=== PATIENT | male | born 1970 | race Hispanic/Latino ===

== ENCOUNTER 2018-12-13 19:58 | Inpatient (IN) | payer SELFPAY ==
[2018-12-13] MEDS ORDERED: LOPRESSOR IV ONE (20:09)
[2018-12-13 20:21] LABS: Basophils # (Auto) 0.1 K/mm3 (0.0-0.1); Basophils % (Auto) 0.9 % (0.0-1.8); Eosinophils # (Auto) 0.2 K/mm3 (0.0-0.4); Eosinophils % (Auto) 1.5 % (0.0-4.3); Hematocrit 44.1 % (35.5-45.6); Hemoglobin 14.9 gm/dl (11.8-15.2); Lymphocytes # (Auto) 4.3 K/mm3 (1.2-5.4); Lymphocytes % (Auto) 29.9 % (13.4-35.0); Mean Corpuscular HGB Conc 34 % (32-34); Mean Corpuscular Volume 91 fl (84-94); Monocytes # (Auto) 1.2 K/mm3 (0.0-0.8); Monocytes % (Auto) 8.2 % (0.0-7.3); Platelet Count 289 K/mm3 (140-440); Red Blood Count 4.85 M/mm3 (3.65-5.03); Red Cell Distribution Width 13.2 % (13.2-15.2)
--- NOTE | 2018-12-13 20:25 | Emergency Department Report ---
ED Chest Pain HPI - General Chief Complaint: Chest Pain Stated Complaint: STEMI Time Seen by Provider: 12/13/18 20:08 Source: patient, EMS Mode of arrival: Stretcher Limitations: No Limitations - History of Present Illness Initial Comments: Patient is 48 years old male with history of coronary artery disease status post stent in 2010 and hypertension. Patient is noncompliant with his medication, he stated that he does not remember the last time he took medication. Patient stated that he was morning his glass when he started having chest pain. He she'll call came from EMS as well as inferior STEMI. EKG sent to Dr. Burgos who stated that there is no STEMI. Patient to stand significantly improved with nitroglycerin. Patient blood pressure is 185/115 upon arrival to the ER. Patient given Lopressor 5 mg IV. MD Complaint: chest pain -: This afternoon Onset: during exertion Pain Location: left chest Pain Radiation: none Severity: moderate Severity scale (0 -10): 7 Quality: heaviness, pressure Consistency: constant Improves With: nitroglycerin - Related Data Home Medications Medication Instructions Recorded Confirmed Last Taken Aspirin EC 325 mg PO QDAY 12/13/18 12/13/18 Unknown Lisinopril [Zestril] 20 mg PO QDAY 12/13/18 12/13/18 Unknown Metoprolol [Lopressor] 25 mg PO BID 12/13/18 12/13/18 Unknown Nitroglycerin [Nitrostat] 0.4 mg SL Q5M PRN 12/13/18 12/13/18 Unknown Allergies Allergy/AdvReac Type Severity Reaction Status Date / Time No Known Allergies Allergy Unverified 12/13/18 20:04 Heart Score - HEART Score History: Moderately suspicious EKG: Non-specific Age: 45-65 Risk factors: > 3 risk factors or hx of atherosclerotic disease Troponin: < normal limit HEART Score: 5 - Critical Actions Critical Actions: 4-6 pts:12-16.6% risk of adverse cardiac event. Should be admitted ED Review of Systems ROS: Stated complaint: STEMI Other details as noted in HPI Comment: All other systems reviewed and negative Constitutional: denies: chills, fever Respiratory: denies: cough, shortness of breath, SOB with exertion Cardiovascular: chest pain. denies: palpitations Gastrointestinal: denies: abdominal pain, nausea, vomiting Musculoskeletal: denies: back pain Neurological: denies: headache, weakness ED Past Medical Hx - Past Medical History Previous Medical History?: Yes Hx Hypertension: Yes Hx Heart Attack/AMI: Yes - Medications Home Medications: Home Medications Medication Instructions Recorded Confirmed Last Taken Type Aspirin EC 325 mg PO QDAY 12/13/18 12/13/18 Unknown History Lisinopril [Zestril] 20 mg PO QDAY 12/13/18 12/13/18 Unknown History Metoprolol [Lopressor] 25 mg PO BID 12/13/18 12/13/18 Unknown History Nitroglycerin [Nitrostat] 0.4 mg SL Q5M PRN 12/13/18 12/13/18 Unknown History ED Physical Exam - General Limitations: No Limitations General appearance: alert, in no apparent distress - Head Head exam: Present: atraumatic, normocephalic, normal inspection - Eye Eye exam: Present: normal appearance - ENT ENT exam: Present: normal exam, normal orophraynx, mucous membranes moist - Neck Neck exam: Present: normal inspection, full ROM. Absent: tenderness, meningismus, lymphadenopathy, thyromegaly - Respiratory Respiratory exam: Present: normal lung sounds bilaterally - Cardiovascular Cardiovascular Exam: Present: tachycardia. Absent: systolic murmur, diastolic murmur, rubs, gallop - GI/Abdominal GI/Abdominal exam: Present: soft, normal bowel sounds. Absent: distended, tenderness, guarding, rebound, rigid - Extremities Exam Extremities exam: Present: normal inspection, full ROM, normal capillary refill - Back Exam Back exam: Present: normal inspection, full ROM. Absent: CVA tenderness (R), CVA tenderness (L) - Neurological Exam Neurological exam: Present: alert, oriented X3, CN II-XII intact, normal gait, reflexes normal - Psychiatric Psychiatric exam: Present: normal mood - Skin Skin exam: Present: warm, intact, normal color ED Course Vital Signs 12/13/18 12/13/18 12/13/18 20:08 20:15 20:47 Temperature 99.3 F Pulse Rate 104 H 104 H 76 Respiratory 20 20 Rate Blood Pressure 185/114 185/114 Blood Pressure 148/93 [Right] O2 Sat by Pulse 96 97 Oximetry ED Medical Decision Making - Lab Data Result diagrams: 12/13/18 20:15 12/13/18 20:15 - EKG Data -: EKG Interpreted by Me EKG shows normal: sinus rhythm Rate: tachycardia - EKG Data Interpretation: nonspecific ST-T wave taty - Radiology Data Radiology results: report reviewed Chest x-ray is unremarkable. - Medical Decision Making Patient is 48 years old male with history of coronary artery disease status post stent in 2010 and hypertension. Patient is noncompliant with his medication, he stated that he does not remember the last time he took medication. Patient stated that he was morning his glass when he started having chest pain. He she'll call came from EMS as well as inferior STEMI. EKG sent to Dr. Burgos who stated that there is no STEMI. Patient to stand significantly improved with nitroglycerin. Patient blood pressure is 185/115 upon arrival to the ER. Patient given Lopressor 5 mg IV. Patient troponin came back at 1.7. Patient discussed with Dr. Burgos, who advised to keep patient nothing by mouth after midnight and start patient now on heparin drip and he will do cardiac catheterization in the morning. I discussed the patient is Dr. Castro, she agreed to admit the patient to medical service. Critical Care Time: Yes Critical care time in (mins) excluding proc time.: 45 Critical care attestation.: If time is entered above; I have spent that time in minutes in the direct care of this critically ill patient, excluding procedure time. ED Disposition Clinical Impression: Non-STEMI (non-ST elevated myocardial infarction), Chest pain Disposition: 09 OP ADMIT IP TO THIS HOSP Is pt being admited?: Yes Condition: Stable Instructions: Chest Pain (ED)
[2018-12-13 20:31] LABS: INR 1.2 (0.87-1.13)
[2018-12-13 20:43] LABS: Calcium 9.4 mg/dL (8.4-10.2)
[2018-12-13] MEDS ORDERED: HEPARIN 10,000 UNITS/10 ML IV ONE ×2 (21:00→21:02)
--- NOTE | 2018-12-13 21:01 | XRay Report ---
CHEST 1 VIEW INDICATION: Chest Pain. COMPARISON: none FINDINGS: SUPPORT DEVICES: None. HEART / MEDIASTINUM: No significant abnormality. LUNGS / PLEURA: No significant pulmonary or pleural abnormality. No pneumothorax. ADDITIONAL FINDINGS: IMPRESSION: 1. No acute findings. Signer Name: Bola Venegas MD Signed: 12/13/2018 8:56 PM Workstation Name: [id number]
[2018-12-13 21:06] LABS: Chol/HDL Ratio 8.16 %
[2018-12-13] MEDS ORDERED: HEPARIN/ 0.45% NACL-25,000 UNIT/500 ML 25,000 UNIT/500 ML BAG ONE (21:09)
[2018-12-13] MEDS ORDERED: HEPARIN/ 0.45% NACL-25,000 UNIT/500 ML 25,000 UNIT/500 ML BAG IV SCH (22:00)
[2018-12-13] MEDS ORDERED: SODIUM CHLORIDE FLUSH SYRINGE 10 ML IV PRN (22:44)
[2018-12-13] MEDS ORDERED: MORPHINE IV PRN (22:44)
[2018-12-13] MEDS ORDERED: AMBIEN PO PRN (22:44)
[2018-12-13] MEDS ORDERED: TYLENOL PO PRN (22:44)
[2018-12-13] MEDS ORDERED: ZOFRAN IV PRN (22:44)
--- NOTE | 2018-12-13 22:49 | History and Physical Report ---
History of Present Illness Date of examination: 12/13/18 Chief complaint: Chest pain History of present illness: Patient is a 48 year old male with history of CAD status post cardiac stent placement who presented to the ED on account of the 5 days history of mid sternal chest pain. He described it as pressure-like in character, rated 9/10 and radiating to the jaw and left arm. The pain waxes and wanes. Patient was slightly relieved with aspirin but no known aggravating factors. He has associated diaphoresis, palpitation, dry cough, headaches, nausea with vomiting 2 episodes and lightheadedness. He denies leg swelling, orthopnea, PND, fever, chills, syncope or loss of consciousness. Patient's last stress test was in 2014 which was normal. He stated that he has not seen a doctor for the past 1 year because his previous primary care physician left the practice. Also, he has been off his medications for the past 1 year because he did not have refills on his medications. Past History Past Medical History: CAD, hypertension Past Surgical History: Other (cardiac stent placement ) Social history: other (he has remote history of cigarette smoking, he quit 22 years ago. He has been smoking marijuana daily for 35 years. He admits to rare alcohol use. He denies other illicit drug use) Family history: other (parents had history of diabetes. Mother had heart attack in her 50s) Medications and Allergies Allergies Allergy/AdvReac Type Severity Reaction Status Date / Time No Known Allergies Allergy Unverified 12/13/18 20:04 Home Medications Medication Instructions Recorded Confirmed Last Taken Type Aspirin EC 325 mg PO QDAY 12/13/18 12/13/18 Unknown History Lisinopril [Zestril] 20 mg PO QDAY 12/13/18 12/13/18 Unknown History Metoprolol [Lopressor] 25 mg PO BID 12/13/18 12/13/18 Unknown History Nitroglycerin [Nitrostat] 0.4 mg SL Q5M PRN 12/13/18 12/13/18 Unknown History Active Meds: Active Medications Acetaminophen (Tylenol) 650 mg PO Q4H PRN PRN Reason: Pain MILD(1-3)/Fever >100.5/LUCERO Docusate Sodium (Colace) 100 mg PO BID CHEL Famotidine (Pepcid) 20 mg PO BID CHEL Heparin Sodium/Sodium Chloride (Heparin/ 0.45% Nacl-25,000 Unit/500 Ml) 25,000 unit in 500 mls @ 20 mls/hr IV TITRATE CHEL; Protocol Last Admin: 12/13/18 21:41 Dose: 1,000 units/hr, 20 mls/hr Documented by: Morphine Sulfate (Morphine) 2 mg IV Q4H PRN PRN Reason: Pain, Moderate (4-6) Ondansetron HCl (Zofran) 4 mg IV Q8H PRN PRN Reason: Nausea And Vomiting Sodium Chloride (Sodium Chloride Flush Syringe 10 Ml) 10 ml IV BID CHEL Sodium Chloride (Sodium Chloride Flush Syringe 10 Ml) 10 ml IV PRN PRN PRN Reason: LINE FLUSH Zolpidem Tartrate (Ambien) 5 mg PO QHS PRN PRN Reason: Insomnia Review of Systems All systems: negative (except as documented in the HPI, 14 point system reviewed were negative) Exam - Constitutional Vitals: Temp Pulse Resp BP Pulse Ox 99.3 F 76 20 148/93 99 12/13/18 20:08 12/13/18 20:47 12/13/18 21:00 12/13/18 20:47 12/13/18 21:00 General appearance: Present: no acute distress, well-nourished - EENT Eyes: Present: PERRL, EOM intact ENT: hearing intact, clear oral mucosa - Neck Neck: Present: supple, normal ROM - Respiratory Respiratory effort: normal Respiratory: bilateral: CTA - Cardiovascular Rhythm: regular Heart Sounds: Present: S1 & S2 - Extremities Extremities: pulses symmetrical, No edema Peripheral Pulses: within normal limits - Abdominal General gastrointestinal: Present: soft, non-tender, non-distended, normal bowel sounds Male genitourinary: Present: deferred - Integumentary Integumentary: Present: clear, warm, dry - Musculoskeletal Musculoskeletal: gait normal, strength equal bilaterally - Psychiatric Psychiatric: appropriate mood/affect, intact judgment & insight - Neurologic Neurologic: CNII-XII intact, moves all extremities Results - Labs CBC & Chem 7: 12/13/18 22:28 12/13/18 20:15 Labs: Laboratory Last Values WBC 14.3 K/mm3 (4.5-11.0) H 12/13/18 20:15 RBC 4.85 M/mm3 (3.65-5.03) 12/13/18 20:15 Hgb 14.9 gm/dl (11.8-15.2) 12/13/18 20:15 Hct 44.1 % (35.5-45.6) 12/13/18 20:15 MCV 91 fl (84-94) 12/13/18 20:15 MCH 31 pg (28-32) 12/13/18 20:15 MCHC 34 % (32-34) 12/13/18 20:15 RDW 13.2 % (13.2-15.2) 12/13/18 20:15 Plt Count 289 K/mm3 (140-440) 12/13/18 20:15 Lymph % (Auto) 29.9 % (13.4-35.0) 12/13/18 20:15 [place] % (Auto) 8.2 % (0.0-7.3) H 12/13/18 20:15 Eos % (Auto) 1.5 % (0.0-4.3) 12/13/18 20:15 Baso % (Auto) 0.9 % (0.0-1.8) 12/13/18 20:15 Lymph # 4.3 K/mm3 (1.2-5.4) 12/13/18 20:15 [place] # 1.2 K/mm3 (0.0-0.8) H 12/13/18 20:15 Eos # 0.2 K/mm3 (0.0-0.4) 12/13/18 20:15 Baso # 0.1 K/mm3 (0.0-0.1) 12/13/18 20:15 Seg Neutrophils % 59.5 % (40.0-70.0) 12/13/18 20:15 Seg Neutrophils # 8.5 K/mm3 (1.8-7.7) H 12/13/18 20:15 PT 14.9 Sec. (12.2-14.9) 12/13/18 20:15 INR 1.20 (0.87-1.13) H 12/13/18 20:15 APTT 32.0 Sec. (24.2-36.6) 12/13/18 20:15 159.89 ng/mlDDU (0-234) 12/13/18 20:15 Sodium 134 mmol/L (137-145) L 12/13/18 20:15 Potassium 4.2 mmol/L (3.6-5.0) 12/13/18 20:15 Chloride 94.5 mmol/L (98-107) L 12/13/18 20:15 Carbon Dioxide 28 mmol/L (22-30) 12/13/18 20:15 16 mmol/L 12/13/18 20:15 BUN 15 mg/dL (9-20) 12/13/18 20:15 1.3 mg/dL (0.8-1.5) 12/13/18 20:15 Estimated GFR 59 ml/min 12/13/18 20:15 12 % 12/13/18 20:15 Glucose 205 mg/dL (75-100) H 12/13/18 20:15 Calcium 9.4 mg/dL (8.4-10.2) 12/13/18 20:15 1.170 ng/mL (0.00-0.029) H* 12/13/18 20:15 Triglycerides 186 mg/dL (2-149) H 12/13/18 20:15 Cholesterol 204 mg/dL (50-199) H 12/13/18 20:15 157 mg/dL (50-130) H 12/13/18 20:15 25 mg/dL (40-59) L 12/13/18 20:15 8.16 % 12/13/18 20:15 29 units/L (13-60) 12/13/18 20:15 Assessment and Plan Assessment and plan: NSTEMI -On ACS protocol with heparin drip -Echocardiogram pending -Cardiology consulted in the ED: Recommended placing patient on nothing by mouth for possible left cardiac catheterization in a.m. Hypertensive crisis -On antihypertensives -Monitor BP and adjust meds as needed Dyslipidemia -On statin Hyperglycemia -We will check hemoglobin A1c level Leukocytosis -Probably reactive, will monitor level -Urinalysis and chest x-ray negative Marijuana abuse -Patient counseled on cessation Medication noncompliance -Patient counseled Time spent: 40 minutes
[2018-12-13] MEDS ORDERED: D50W (25GM) Syringe IV PRN (22:50)
[2018-12-13] MEDS ORDERED: NITROSTAT SL PRN (22:51)
[2018-12-13 22:59] LABS: Hematocrit 42.9 % (35.5-45.6); Hemoglobin 14.4 gm/dl (11.8-15.2)
[2018-12-13 23:01] LABS: Bilirubin,Urine NEG (Negative); Blood,Urine SM (Negative); Color,Urine Straw (Yellow); Protein,Urine <15 mg/dL mg/dL (Negative); Urobilinogen,Urine < 2.0 mg/dL (<2.0); WBC,Urine < 1.0 /HPF (0.0-6.0)
[2018-12-13 23:10] LABS: INR 1.28 (0.87-1.13)
[2018-12-13 23:15] LABS: Partial Thromboplastin Time 118.2 Sec. (24.2-36.6)
[2018-12-13 23:22] LABS: Amphetamine Screen,Urine PRESUMPTIVE NEGATIVE; Benzodiazepines Screen,Urine PRESUMPTIVE NEGATIVE; Cocaine Screen,Urine PRESUMPTIVE NEGATIVE; Methadone Screen,Urine PRESUMPTIVE NEGATIVE; Opiate Screen,Urine PRESUMPTIVE NEGATIVE
[2018-12-13 23:35] LABS: Cannabinoid Screen,Urine PRESUMPTIVE POSITIVE
[2018-12-13] MEDS ORDERED: COREG ONE (23:42)
[2018-12-13] MEDS: COREG PO SCH (23:43)
[2018-12-13] MEDS ORDERED: NACL 0.9% 1000 ML 1,000 ML IV SCH (23:45)
[2018-12-14 05:04] LABS: Alanine Aminotransferase 31 units/L (7-56); Albumin 3.5 g/dL (3.9-5)
[2018-12-14 05:06] LABS: Bilirubin,Direct < 0.2 mg/dL (0-0.2)
[2018-12-14] MEDS ORDERED: HEPARIN 10,000 UNITS/10 ML IV ONE (06:30)
[2018-12-14] MEDS ORDERED: NACL 0.9% 500 ML 500 ML ONE ×2 (07:33→09:17)
[2018-12-14] MEDS ORDERED: ECOTRIN PO ONE ×2 (07:48→08:00)
[2018-12-14] MEDS ORDERED: NACL 0.9% 500 ML 500 ML IV SCH (08:00)
[2018-12-14] MEDS ORDERED: HEPARIN/NS 5000 UNIT/500ML(CATH LAB) 1,000 ML IR ONE (08:18)
[2018-12-14] MEDS ORDERED: XYLOCAINE 2% INFILTRATI ONE (08:18)
[2018-12-14] MEDS ORDERED: HEPARIN 10,000 UNITS/10 ML ONE (08:18)
[2018-12-14] MEDS ORDERED: CALAN ONE (08:18)
[2018-12-14] MEDS ORDERED: NITROGLYCERIN SYRINGE 3 ML ONE (08:18)
[2018-12-14] MEDS ORDERED: SUBLIMAZE ONE (08:19)
[2018-12-14] MEDS ORDERED: VERSED ONE (08:19)
--- NOTE | 2018-12-14 09:13 | Cardiac Catherization Report ---
REFERRING PHYSICIAN: Hospitalist service. INDICATION FOR PROCEDURE: The patient is a pleasant 48-year-old gentleman who presents here with chest pain, fatigue, history of prior PCI, has not seen a doctor for some time, found to have a non-ST elevation myocardial infarction, referred for urgent left heart catheterization. Risks, benefits, alternatives explained at length prior to obtaining informed consent. PROCEDURE IN DETAIL: The patient was brought to the catheterization lab in a postabsorptive state, prepped and draped in sterile fashion. Jesús's test in right hand was normal. A 2 mL of 2% lidocaine used to anesthetize the right wrist. A standard 6-[place] hydrophilic sheath used to cannulate the right radial via modified Seldinger technique. All exchanges performed to exchange a J-tip guidewire. JL3.5 catheter used to engage the left main. No dampening or ventricularization. Cineangiography performed in all projections. JR4 catheter was used to cross the aortic valve under fluoroscopic guidance. Left ventriculography performed in 30 VAZQUEZ and 30 CHERYLE projections via hand injections, catheter flushed. Manual pullback performed with continuous pressure monitoring. Catheter used to engage the right coronary. No dampening or ventricularization. Cineangiography performed in all projections. Catheter removed from the body of wire, sheath removed. Manual pressure used to achieve hemostasis. DATA: Aortic pressure is 140/80, LV pressure is 140. LVP of 35 mmHg. Left ventriculography revealed severe global left ventricle hypokinesis. Estimated ejection fraction of 20-25%. No evidence of aortic stenosis. CORONARY ANATOMY: Right dominant system. Right coronary has a chronic total occlusion proximally extensive left to right collaterals. Left main with an eccentric calcified 70% distal stenosis. A 99% ostial/proximal long complex circumflex stenosis, 75% ostial LAD stenosis. LAD is chronic diffuse disease throughout including mid 99%. Second diagonal with a 99% stenosis. CONCLUSIONS: 1. Severe and diffuse triple vessel disease as aforementioned in this right dominant system. 2. Severe global left ventricular hypokinesis, estimated ejection fraction of 20-25%. 3. Moderately elevated LVEDP. 4. No evidence of aortic stenosis. PLAN: At this point, the patient would recommend a complete revascularization with coronary bypass surgery. The patient is clinically stable. No chest pain. Orthopnea on room air is very comfortable. We will give IV Lasix, transferred to [facility] for bypass surgery. He is in stable condition. The results of procedure were explained at length to the patient. All questions and concerns were addressed. I directly supervised the administration of moderate sedation with fentanyl and Versed from 8:40-9:00 a.m. JOB# [id number] SBM/NTS
[2018-12-14] MEDS ORDERED: ZESTRIL PO SCH (10:00)
[2018-12-14] MEDS ORDERED: PEPCID PO SCH (10:00)
[2018-12-14] MEDS ORDERED: SODIUM CHLORIDE FLUSH SYRINGE 10 ML IV SCH (10:00)
[2018-12-14] MEDS ORDERED: COLACE PO SCH (10:00)
--- NOTE | 2018-12-14 10:06 | Consultation ---
CARDIOLOGY CONSULTATION REASON FOR CONSULTATION: Advice and opinion regarding chest pain. HISTORY OF PRESENT ILLNESS: The patient is a pleasant 48-year-old gentleman with history of coronary artery disease, history of PCI years ago, hypertension, past tobacco abuse, marijuana use, presents here for chest pain rated 9-10 radiating to left arm and jaw, waxes and waning, been going on for weeks. Does have palpitations, occasional headache, nausea, vomiting. He does have occasional orthopnea, no PND. Last stress test was in 2014, has not seen a doctor in years, not taken any of his medications, now feeling much better after blood pressure improved and nitroglycerin given. PAST MEDICAL HISTORY: Coronary artery disease, hypertension. PAST SURGICAL HISTORY: PCI. SOCIAL HISTORY: As aforementioned. FAMILY HISTORY: Mother with premature heart disease. Both parents had diabetes. ALLERGIES: No known drug, food, or environmental allergies. MEDICATIONS: Inpatient and outpatient medications reviewed. REVIEW OF SYSTEMS: As per HPI. PHYSICAL EXAMINATION: VITAL SIGNS: His blood pressure is in the 130s/90s range. He is in sinus rhythm. O2 sats have been 98% on room air, respirations 16. GENERAL: This is a young gentleman, in no apparent distress, oriented x 3. HEENT: Sclerae are anicteric. PERRLA. NECK: Supple. No mass. No JVD. CHEST: Clear to auscultation, good air movement. CARDIOVASCULAR: Irregular rhythm, S1, S2. ABDOMEN: Soft, nontender, nondistended. Normoactive bowel sounds in 4 quadrants. No mass or bruits. EXTREMITIES: No cyanosis, clubbing, edema. Good peripheral pulses. SKIN: Intact. No rashes. LABORATORY DATA: ECG reveals sinus tachycardia, nonspecific ST-T wave changes, LVH. Labs, first troponin is 1.2, hemoglobin is 14.4, hematocrit is 42.9, platelets 296. Creatinine is normal. Sodium 134. Positive for marijuana. ASSESSMENT AND PLAN: The patient is a pleasant 48-year-old gentleman who presents with non-ST elevation myocardial infarction, in milieu of medical noncompliance, marijuana use and known coronary artery disease. IV heparin, aspirin, statin, nitro, beta blockade, left heart catheterization in a.m. My findings and plan of care discussed at length with the patient, all questions and concerns were addressed. Further plans contingent on cath results. [facility]# [id number] MAYDA/GILES
[2018-12-14] MEDS: HumaLOG SUB-Q SCH ×2 (10:53→11:50)
[2018-12-14] MEDS: COREG PO SCH (11:54)
[2018-12-14 13:40] VITALS: BP 92/54
--- NOTE | 2018-12-14 15:44 | Progress Note ---
Subjective Date of service: 12/14/18 Interval history: A/P Sepsis. Etiology secondary to pneumonia and UTI. Blood culture 12/06/2018 no growth. urine culture no growth. Infectious disease following and reports that the infection is incurable. Consider hospice care. Healthcare associated pneumonia. CXR with persistent right infiltrate. Tracheal asp poor specimen Acute hypoxic respiratory failure. Etiology secondary to above. Patient was recently intubated now extubated. Continue O2 to maintain sats Complicated UTI with large rectovesical fistula, stones and bilateral [employer] tubes. This infection is incurable. Urine culture from right TONG[employer] tube 11/02/2018 Pseudomonas and VRE. s/p nephrostogram and nephrostomy tube exchange of bilateral nephrostomy tubes 11/12/[address] Aguayo. Periumbilical intraabdominal collection which was drained History of pulmonary embolism. Severe protein calorie malnutrition. Nutritional support. Objective - Constitutional Vitals: Vital Signs - 12hr 12/14/18 12/14/18 12/14/18 09:05 09:20 09:35 Temperature 97.9 F Pulse Rate 79 78 77 Respiratory 16 14 10 L Rate Blood Pressure 150/112 145/108 137/101 O2 Sat by Pulse 94 94 95 Oximetry 12/14/18 12/14/18 12/14/18 09:50 10:30 11:00 Temperature Pulse Rate 73 71 80 Respiratory 12 15 30 H Rate Blood Pressure 149/105 143/103 152/114 O2 Sat by Pulse 95 96 97 Oximetry 12/14/18 12/14/18 12/14/18 11:15 11:30 11:45 Temperature Pulse Rate 72 78 80 Respiratory 18 15 13 Rate Blood Pressure 138/100 143/98 153/96 O2 Sat by Pulse 96 96 96 Oximetry 12/14/18 12/14/18 12/14/18 11:54 12:00 12:30 Temperature Pulse Rate 80 80 78 Respiratory 15 20 Rate Blood Pressure 138/100 155/102 139/94 O2 Sat by Pulse 95 96 Oximetry 12/14/18 12/14/18 13:00 13:30 Temperature Pulse Rate 82 77 Respiratory 13 14 Rate Blood Pressure 134/94 92/54 O2 Sat by Pulse 97 98 Oximetry - Labs CBC & Chem 7: 12/13/18 22:28 12/13/18 20:15 Labs: Abnormal lab results 12/13/18 12/13/18 12/13/18 Range/Units 20:15 20:15 20:15 WBC 14.3 H (4.5-11.0) K/mm3 [place] % (Auto) 8.2 H (0.0-7.3) % [place] # 1.2 H (0.0-0.8) K/mm3 Seg Neutrophils # 8.5 H (1.8-7.7) K/mm3 PT (12.2-14.9) Sec. INR 1.20 H (0.87-1.13) APTT (24.2-36.6) Sec. Heparin Anti-Xa Level (0.3-0.7) U.I./ml Sodium 134 L (137-145) mmol/L Chloride 94.5 L (98-107) mmol/L Glucose 205 H (75-100) mg/dL POC Glucose (70-105) AST (5-40) units/L Troponin T 1.170 H* (0.00-0.029) ng/mL Albumin (3.9-5) g/dL Triglycerides 186 H (2-149) mg/dL Cholesterol 204 H (50-199) mg/dL LDL Cholesterol Direct 157 H (50-130) mg/dL HDL Cholesterol 25 L (40-59) mg/dL 12/13/18 12/13/18 12/14/18 Range/Units 22:28 22:28 04:14 WBC (4.5-11.0) K/mm3 [place] % (Auto) (0.0-7.3) % [place] # (0.0-0.8) K/mm3 Seg Neutrophils # (1.8-7.7) K/mm3 PT 15.7 H (12.2-14.9) Sec. INR 1.28 H (0.87-1.13) APTT 118.2 H* (24.2-36.6) Sec. Heparin Anti-Xa Level < 0.10 L (0.3-0.7) U.I./ml Sodium (137-145) mmol/L Chloride (98-107) mmol/L Glucose (75-100) mg/dL POC Glucose (70-105) AST (5-40) units/L Troponin T 1.220 H* (0.00-0.029) ng/mL Albumin (3.9-5) g/dL Triglycerides (2-149) mg/dL Cholesterol (50-199) mg/dL LDL Cholesterol Direct (50-130) mg/dL HDL Cholesterol (40-59) mg/dL 12/14/18 12/14/18 12/14/18 Range/Units 04:14 04:14 10:52 WBC (4.5-11.0) K/mm3 [place] % (Auto) (0.0-7.3) % [place] # (0.0-0.8) K/mm3 Seg Neutrophils # (1.8-7.7) K/mm3 PT (12.2-14.9) Sec. INR (0.87-1.13) APTT (24.2-36.6) Sec. Heparin Anti-Xa Level (0.3-0.7) U.I./ml Sodium (137-145) mmol/L Chloride (98-107) mmol/L Glucose (75-100) mg/dL POC Glucose 136 H (70-105) AST 41 H (5-40) units/L Troponin T 1.420 H* (0.00-0.029) ng/mL Albumin 3.5 L (3.9-5) g/dL Triglycerides (2-149) mg/dL Cholesterol (50-199) mg/dL LDL Cholesterol Direct (50-130) mg/dL HDL Cholesterol (40-59) mg/dL
--- NOTE | 2018-12-14 18:40 | Discharge Summary ---
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 Hospitalization Reason for admission: chest pain Condition: Stable Pertinent studies: [facility] Hospital course: Patient admitted via emergency room for evaluation FOR chest pain and abnormal troponin level Cardiology evaluated the patient and this morning patient had left heart catheterization which revealed severe triple vessel disease not amenable to stent placement and reduced ejection fraction of 20-25%, and the patient was discharged transfer to [place] for consideration for CABG Unfortunately patient was not seen by me as he never came back to the floor 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 Hypertensive crisis -On antihypertensives -Monitor BP and adjust meds as needed Dyslipidemia -On statin Disposition: [id number] ANOTHER TYPE [facility] Core Measure Documentation - Palliative Care Palliative Care/ Comfort Measures: Not Applicable - Core Measures Any of the following diagnoses?: acute FL - Acute [place] Discharge Requirements Aspirin at discharge: Yes SHANNEN/ARB for LVSD if EF <40%: Yes Beta francisco at discharge: Yes Statin for LDL = or >100 mg/dl on DC: Yes Exam - Physical Exam Narrative exam: Patient was not seen by me as she was transferred to [facility] for CABG 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
== END 2018-12-14 13:30 | disposition short-term general hospital (02) | DRG 281 ==
LOC: ED 19:58 → 4A 22:45
PROVIDERS: ADMIT Internal Medicine; ATTEND Internal Medicine
PROC: 4A023N7 Measurement of Cardiac Sampling and Pressure, Left Heart, Percutaneous Approach (ICD-10-PCS; principal; 2018-12-14)
PROC: B2111ZZ Fluoroscopy of Multiple Coronary Arteries using Low Osmolar Contrast (ICD-10-PCS; 2018-12-14)
PROC: B2151ZZ Fluoroscopy of Left Heart using Low Osmolar Contrast (ICD-10-PCS; 2018-12-14)
DX: I21.4 Non-ST elevation (NSTEMI) myocardial infarction (principal); I16.9 Hypertensive crisis, unspecified; E78.2 Mixed hyperlipidemia; R73.9 Hyperglycemia, unspecified; F12.90 Cannabis use, unspecified, uncomplicated; I25.10 Atherosclerotic heart disease of native coronary artery without angina pectoris; I10 Essential (primary) hypertension; E78.5 Hyperlipidemia, unspecified; Z79.82 Long term (current) use of aspirin; Z87.891 Personal history of nicotine dependence; Z91.19 Patient's noncompliance with other medical treatment and regimen; I25.2 Old myocardial infarction
CPT/HCPCS: 36415; 71045; 80048; 80061; 80076; 80307; 81001; 82962; 83690; 83735; 84484; 85014; 85018; 85025; 85049; 85379; 85520; 85610; 85730; 93005; 93010; 93306; 93458; G0378; A9270-GY; C1894; J1644; J2250; J3010; J7040; Q9967

== ENCOUNTER 2019-07-22 15:51 | Emergency (ER) | payer OTHER ==
--- NOTE | 2019-07-22 16:19 | Emergency Department Report ---
ED Seizure HPI - General Chief Complaint: GI Bleed Stated Complaint: VOMITING Time Seen by Provider: 07/22/19 16:01 Source: patient, EMS Mode of arrival: Stretcher Limitations: No Limitations - Related Data Home Medications Medication Instructions Recorded Confirmed Last Taken Aspirin EC [Ecotrin] 325 mg PO QDAY 12/13/18 12/13/18 Unknown Metoprolol [Lopressor] 25 mg PO BID 12/13/18 12/13/18 Unknown Nitroglycerin [Nitrostat] 0.4 mg SL Q5M PRN 12/13/18 12/13/18 Unknown lisinopriL [Zestril] 20 mg PO QDAY 12/13/18 12/13/18 Unknown Allergies Allergy/AdvReac Type Severity Reaction Status Date / Time No Known Allergies Allergy Unverified 12/13/18 20:04 ED Review of Systems ROS: Stated complaint: VOMITING Other details as noted in HPI ED Past Medical Hx - Past Medical History Previous Medical History?: Yes Hx Hypertension: Yes Hx Heart Attack/AMI: Yes - Surgical History Past Surgical History?: Yes Additional Surgical History: bypass 12/2018 - Social History Smoking Status: Former Smoker Substance Use Type: Alcohol, Marijuana - Medications Home Medications: Home Medications Medication Instructions Recorded Confirmed Last Taken Type Aspirin EC [Ecotrin] 325 mg PO QDAY 12/13/18 12/13/18 Unknown History Metoprolol [Lopressor] 25 mg PO BID 12/13/18 12/13/18 Unknown History Nitroglycerin [Nitrostat] 0.4 mg SL Q5M PRN 12/13/18 12/13/18 Unknown History lisinopriL [Zestril] 20 mg PO QDAY 12/13/18 12/13/18 Unknown History ED Physical Exam - General Limitations: No Limitations ED Course Vital Signs 07/22/19 15:59 Temperature 97 F L Pulse Rate 83 Respiratory 29 H Rate Blood Pressure 144/87 O2 Sat by Pulse 99 Oximetry Critical care attestation.: If time is entered above; I have spent that time in minutes in the direct care of this critically ill patient, excluding procedure time. ED Disposition Condition: Stable
--- NOTE | 2019-07-22 16:22 | Emergency Department Report ---
ED Neuro Deficit HPI - General Chief Complaint: GI Bleed Stated Complaint: VOMITING Time Seen by Provider: 07/22/19 16:01 Source: patient, EMS (Verbal report received from EMS. EMS documentation not available at time of chart dictation ), RN notes reviewed, old records reviewed Mode of arrival: Stretcher Limitations: Altered Mental Status, Physical Limitation - History of Present Illness Initial Comments: Patient is a 49-year-old gentleman. This patient is not known to myself previously. He has a history of known coronary artery disease, triple-vessel disease, presumably hypertension, high cholesterol, possibly diabetes. He is brought to the hospital by emergency medical services. History obtained from EMS, patient's fianc, and patient's boss, a Mr. Forman. Apparently, the patient left for work this morning, in his normal state of health. His boss indicates that the patient himself arrived at work at 855 this morning, in his usual state of health. His boss arrived to work at 9:15 AM today, and the patient was still in his usual state of health. As per his boss, his last known well time is 11:00 AM. At around 11:00 AM, as per the patient's boss, the patient indicated that he "felt off", and felt like his vision was off, seeing "distortions, and squiggly lines." In addition, the patient was having respiratory distress, as per his boss, "taking too many deep breaths", and was slurring his speech. Apparently, emergency medical services were activated at, or around 3:00 PM. First medical contact in the emergency room was at 3:59 PM. Apparently, the patient had a seizure, or convulsion, he cannot describe, and had some issues with nausea and vomiting. As per his fiance, she had not seen him since last night, as he woke up for work earlier than when she woke up. Initially in the emergency room, the patient is awake, and follows commands. He is found to have a left-sided facial droop, and left-sided weakness. His Accu- Chek was within normal limits. He was initially protecting his airway. A code stroke was called ahead over head, and patient went to CT scan emergently. Apparently, at the end of his CAT scan, he began to have issues with bradycardia, as per nursing report, and became unresponsive and somnolent, gurgling, and not protecting his airway. He required emergent endotracheal intubation for airway protection. The patient is now intubated, and cannot describe exacerbating or relieving factors, qualitative nature of his symptoms. We are still awaiting CT scan interpretation; radiology just called, and indicated CT scan of the brain is negative for acute bleed From radiology, although to my interpretation, I do not see an obvious bleed. We are very concerned about a potential large vessel occlusion, and will therefore emergently and administratively obtain CT angiogram head and neck to evaluate for large vessel occlusion -: This morning Location: left face, left arm, left leg, altered Presenting Symptoms: Present: Weak/Paralyzed One Side, Altered Mental Status Place: work Severity: Unable to Determine Quality: other Improves With: other Worsens With: other Associated Symptoms: weakness, other - Related Data Home Medications: Home Medications Medication Instructions Recorded Confirmed Last Taken Aspirin EC [Ecotrin] 325 mg PO QDAY 12/13/18 12/13/18 Unknown Metoprolol [Lopressor] 25 mg PO BID 12/13/18 12/13/18 Unknown Nitroglycerin [Nitrostat] 0.4 mg SL Q5M PRN 12/13/18 12/13/18 Unknown lisinopriL [Zestril] 20 mg PO QDAY 12/13/18 12/13/18 Unknown Allergies/Adverse Reactions: Allergies Allergy/AdvReac Type Severity Reaction Status Date / Time No Known Allergies Allergy Unverified 12/13/18 20:04 ED Review of Systems ROS: Stated complaint: VOMITING Other details as noted in HPI Comment: Unobtainable due to pts medical conditions ED Past Medical Hx - Past Medical History Previous Medical History?: Yes Hx Hypertension: Yes Hx Heart Attack/AMI: Yes - Surgical History Past Surgical History?: Yes Additional Surgical History: bypass 12/2018 - Social History Smoking Status: Former Smoker Substance Use Type: Alcohol, Marijuana - Medications Home Medications: Home Medications Medication Instructions Recorded Confirmed Last Taken Type Aspirin EC [Ecotrin] 325 mg PO QDAY 12/13/18 12/13/18 Unknown History Metoprolol [Lopressor] 25 mg PO BID 12/13/18 12/13/18 Unknown History Nitroglycerin [Nitrostat] 0.4 mg SL Q5M PRN 12/13/18 12/13/18 Unknown History lisinopriL [Zestril] 20 mg PO QDAY 12/13/18 12/13/18 Unknown History ED Neuro Physical Exam - General Limitations: Altered Mental Status, Physical Limitation General appearance: alert, anxious, in distress, obese Suspected Stroke: Yes - Head Head exam: Present: atraumatic, normocephalic - Eye Eye exam: Present: normal appearance - ENT ENT exam: Present: normal orophraynx, mucous membranes moist, normal external ear exam, other (Patient has poor dentition) - Neck Neck exam: Present: normal inspection - Respiratory Respiratory exam: Present: normal lung sounds bilaterally, other (Patient initially not in any respiratory distress, however, clinical condition deteriorated rapidly, and eventually developed respiratory distress, tachypneic, rhonchi). Absent: respiratory distress, wheezes, rales, stridor - Cardiovascular Cardiovascular Exam: Present: normal rhythm, tachycardia, normal heart sounds. Absent: bradycardia, irregular rhythm, systolic murmur, diastolic murmur, rubs, gallop - GI/Abdominal GI/Abdominal exam: Present: soft. Absent: distended, tenderness, guarding, rebound, rigid, pulsatile mass - Rectal Rectal exam: Present: deferred - Extremities Exam Extremities exam: Present: normal inspection, other (2+ pulses noted in the bilateral upper and lower extremities. There is no palpable cord. negative Homans sign. Muscular compartments are soft. The pelvis is stable.) - Back Exam Back exam: Present: normal inspection - Neurological Exam Neurological exam: Present: other (There is a left-sided facial droop. There is left-sided hemiparesis. The patient is a phasic) - NIHSS Assessment Interval: Baseline 1a. Level of Consciousness: arousable/minor stimuli 1b. LOC Questions: aphasic 1c. LOC Commands: performs tasks correctly 2. Best Gaze: normal (Unable to assess) 3. Visual: no visual loss (Unable to assess) 4. Facial Palsy: partial paralysis (Has left-sided facial paralysis, however, unable to perform complete assessment) 5b. Motor Arm Right: some gravity effort 5a. Motor Arm Left: no movement 6a. Motor Leg Left: no movement 6b. Motor Leg Right: some gravity effort 7. Limb Ataxia: amputation (unable to assess) 8. Sensory: mild/moderate sensory loss (Unable to assess) 9. Best Language: mute/global aphasia 10. Dysarthria: intubated or other barrier 11. Extinction/Inattention: visual/tactile inattention Total Score: 22 Stroke Severity: Severe Stroke - Psychiatric Psychiatric exam: Present: anxious - Skin Skin exam: Present: warm, dry, intact, normal color. Absent: rash ED Course Vital Signs 07/22/19 07/22/19 07/22/19 15:59 16:36 16:46 Temperature 97 F L Pulse Rate 83 69 114 H Respiratory 29 H 23 19 Rate Blood Pressure 144/87 218/137 O2 Sat by Pulse 99 88 98 Oximetry 07/22/19 07/22/19 07/22/19 17:00 17:30 17:36 Temperature Pulse Rate 104 H 98 H 86 Respiratory 19 12 18 Rate Blood Pressure 226/149 227/143 176/94 O2 Sat by Pulse 91 90 93 Oximetry 07/22/19 07/22/19 07/22/19 17:38 17:40 17:46 Temperature Pulse Rate 88 87 82 Respiratory 18 18 Rate Blood Pressure 151/80 176/94 151/80 O2 Sat by Pulse 94 92 94 Oximetry 07/22/19 07/22/19 07/22/19 17:50 17:56 18:04 Temperature Pulse Rate 82 80 82 Respiratory 18 18 18 Rate Blood Pressure 151/80 152/84 227/143 O2 Sat by Pulse 95 95 95 Oximetry 07/22/19 07/22/19 07/22/19 18:05 18:10 18:15 Temperature Pulse Rate 78 83 82 Respiratory 18 18 19 Rate Blood Pressure 227/143 156/89 156/83 O2 Sat by Pulse 95 95 96 Oximetry 07/22/19 07/22/19 07/22/19 18:20 18:30 18:40 Temperature Pulse Rate 78 77 Respiratory 18 19 Rate Blood Pressure 166/91 169/89 156/90 O2 Sat by Pulse 97 97 Oximetry - Reevaluation(s) Reevaluation #1: 07/22/19 16:58 Differential diagnosis, including but not limited to: Ischemic stroke, hemorrhagic stroke, large vessel occlusion, status epilepticus Pneumonia, urinary tract infection, electrolyte derangement, thyroid derangement Assessment and plan: 49-year-old gentleman, who as per collateral information, developed concerning neurologic symptoms at 11:00 this morning. The patient presented more than 4.5 hours after symptom onset, and is therefore not a TPA candidate. He deteriorated rapidly, and required emergency airway management and endotracheal intubation. He was intubated by myself with 1 attempt, with no significant difficulty. He is going back for CT angiogram head and neck to assess for potential large vessel occlusion. He was briefly seen by tele-neurology stroke physician, Dr Libby Queen; who agreed with the aforementioned medical decision making. He also agrees that patient is not a TPA candidate. We will elevate the head of the bed, initiate seizure precautions, and load empirically with Keppra. In addition, we have preemptively reached out to a local endovascular stroke center, [facility], to initiate discussion for transfer for services not available at this facility. Received verbal report from radiology that initial CT scan of the brain is negative for bleed. 07/22/19 17:07 Received call back from neurology stroke specialist at [facility], , who is going to follow-up on CT angios. 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 They recommend head of bed to be laid flat. They are agreeable to Keppra therapy. Reevaluation #2: 07/22/19 18:28 cta confirms basilar artery thrombosis Patient accepted to [facility] by Dr. Vikram Jimenez. Heparinization is not recommended at this time. Permissive hypertension is recommended at this time, nicardipine drip will be canceled. Patient's fianc has been updated. This patient has an emergency medical condition which cannot be definitively managed at this hospital, as we do not have the necessary [facility] services. Patient has a poor ejection fraction, and will not benefit from aggressive fluid bolus at this time. - Intubation Time Out Performed: Yes (Emergency situation) Sedative: Etomidate Mg Given: 20 Paralytic: Rocuronium Mg Given: 100 Laryngoscope: Brody Size: 4 ET Tube Size: 7.5 Tube Secured Depth (cm): 23 Tube Secured Location: teeth Tube Placement Confirmation: visualized tube passing t, equal breath sounds bilat, no breath sounds over epi, confirmation by capnometr Patient Tolerated Procedure: well Intubation Complications: difficult intubation Additional Comments: Patient placed on nasal cannula at 15 L/min. Received mcs-cfetx-twas ventilation. Patient premedicated with lidocaine, induced with etomidate, and paralyzed with rocuronium. Direct laryngoscopy performed, and endotracheal intubation is performed by myself with 1 attempt. Patient was very difficult to syu-lbujm-mmox, the best O2 saturation that could be achieved was 83 to 84%, with simultaneous buh-aflcm-goif ventilation, and nasal cannula running at 15 L/min. The current tiz-htfjf-fcud apparatus does not have an interface to allow for Peep valve, and the patient obviously required emergent airway management. Immediately after endotracheal intubation, oxygen saturation improved to the high 90s - Lab Data Result diagrams: 07/22/19 17:02 07/22/19 17:02 Lab Results 07/22/19 07/22/19 07/22/19 Range/Units 16:08 17:02 17:02 WBC 17.6 H (4.5-11.0) K/mm3 RBC 5.62 H (3.65-5.03) M/mm3 Hgb 16.9 H (11.8-15.2) gm/dl Hct 51.9 H (35.5-45.6) % MCV 92 (84-94) fl MCH 30 (28-32) pg MCHC 33 (32-34) % RDW 13.6 (13.2-15.2) % Plt Count 275 (140-440) K/mm3 Lymph % (Auto) 12.8 L (13.4-35.0) % [place] % (Auto) 3.1 (0.0-7.3) % Eos % (Auto) 0.2 (0.0-4.3) % Baso % (Auto) 0.5 (0.0-1.8) % Lymph # 2.3 (1.2-5.4) K/mm3 [place] # 0.6 (0.0-0.8) K/mm3 Eos # 0.0 (0.0-0.4) K/mm3 Baso # 0.1 (0.0-0.1) K/mm3 Seg Neutrophils % 83.4 H (40.0-70.0) % Seg Neutrophils # 14.7 H (1.8-7.7) K/mm3 PT 15.0 H (12.2-14.9) Sec. INR 1.16 H (0.87-1.13) APTT 31.5 (24.2-36.6) Sec. Thrombin Time (15.1-19.6) Sec. Sodium (137-145) mmol/L Potassium (3.6-5.0) mmol/L Chloride (98-107) mmol/L Carbon Dioxide (22-30) mmol/L Anion Gap mmol/L BUN (9-20) mg/dL Creatinine (0.8-1.5) mg/dL Estimated GFR ml/min BUN/Creatinine Ratio % Glucose (75-100) mg/dL POC Glucose 202 H (70-105) Lactic Acid (0.7-2.0) mmol/L Calcium (8.4-10.2) mg/dL Magnesium (1.7-2.3) mg/dL Total Bilirubin (0.1-1.2) mg/dL Direct Bilirubin (0-0.2) mg/dL Indirect Bilirubin mg/dL AST (5-40) units/L ALT (7-56) units/L Alkaline Phosphatase (35-129) units/L Total Creatine Kinase (55-170) units/L Troponin T (0.00-0.029) ng/mL Total Protein (6.3-8.2) g/dL Albumin (3.9-5) g/dL Albumin/Globulin Ratio % Salicylates (2.8-20.0) mg/dL Acetaminophen (10.0-30.0) ug/mL 07/22/19 07/22/19 07/22/19 Range/Units 17:02 17:02 17:02 WBC (4.5-11.0) K/mm3 RBC (3.65-5.03) M/mm3 Hgb (11.8-15.2) gm/dl Hct (35.5-45.6) % MCV (84-94) fl MCH (28-32) pg MCHC (32-34) % RDW (13.2-15.2) % Plt Count (140-440) K/mm3 Lymph % (Auto) (13.4-35.0) % [place] % (Auto) (0.0-7.3) % Eos % (Auto) (0.0-4.3) % Baso % (Auto) (0.0-1.8) % Lymph # (1.2-5.4) K/mm3 [place] # (0.0-0.8) K/mm3 Eos # (0.0-0.4) K/mm3 Baso # (0.0-0.1) K/mm3 Seg Neutrophils % (40.0-70.0) % Seg Neutrophils # (1.8-7.7) K/mm3 PT (12.2-14.9) Sec. INR (0.87-1.13) APTT (24.2-36.6) Sec. Thrombin Time 17.6 (15.1-19.6) Sec. Sodium 137 (137-145) mmol/L Potassium 3.2 L (3.6-5.0) mmol/L Chloride 96.2 L (98-107) mmol/L Carbon Dioxide 18 L (22-30) mmol/L Anion Gap 26 mmol/L BUN 15 (9-20) mg/dL Creatinine 1.1 (0.8-1.5) mg/dL Estimated GFR > 60 ml/min BUN/Creatinine Ratio 14 % Glucose 243 H (75-100) mg/dL POC Glucose (70-105) Lactic Acid (0.7-2.0) mmol/L Calcium 9.6 (8.4-10.2) mg/dL Magnesium 2.00 (1.7-2.3) mg/dL Total Bilirubin 0.40 (0.1-1.2) mg/dL Direct Bilirubin < 0.2 (0-0.2) mg/dL Indirect Bilirubin 0.2 mg/dL AST 25 (5-40) units/L ALT 19 (7-56) units/L Alkaline Phosphatase 102 (35-129) units/L Total Creatine Kinase 161 (55-170) units/L Troponin T < 0.010 (0.00-0.029) ng/mL Total Protein 8.1 (6.3-8.2) g/dL Albumin 4.7 (3.9-5) g/dL Albumin/Globulin Ratio 1.4 % Salicylates (2.8-20.0) mg/dL Acetaminophen (10.0-30.0) ug/mL 07/22/19 07/22/19 07/22/19 Range/Units 17:02 17:02 17:42 WBC (4.5-11.0) K/mm3 RBC (3.65-5.03) M/mm3 Hgb (11.8-15.2) gm/dl Hct (35.5-45.6) % MCV (84-94) fl MCH (28-32) pg MCHC (32-34) % RDW (13.2-15.2) % Plt Count (140-440) K/mm3 Lymph % (Auto) (13.4-35.0) % [place] % (Auto) (0.0-7.3) % Eos % (Auto) (0.0-4.3) % Baso % (Auto) (0.0-1.8) % Lymph # (1.2-5.4) K/mm3 [place] # (0.0-0.8) K/mm3 Eos # (0.0-0.4) K/mm3 Baso # (0.0-0.1) K/mm3 Seg Neutrophils % (40.0-70.0) % Seg Neutrophils # (1.8-7.7) K/mm3 PT (12.2-14.9) Sec. INR (0.87-1.13) APTT (24.2-36.6) Sec. Thrombin Time (15.1-19.6) Sec. Sodium (137-145) mmol/L Potassium (3.6-5.0) mmol/L Chloride (98-107) mmol/L Carbon Dioxide (22-30) mmol/L Anion Gap mmol/L BUN (9-20) mg/dL Creatinine (0.8-1.5) mg/dL Estimated GFR ml/min BUN/Creatinine Ratio % Glucose (75-100) mg/dL POC Glucose (70-105) Lactic Acid 3.90 H* (0.7-2.0) mmol/L Calcium (8.4-10.2) mg/dL Magnesium (1.7-2.3) mg/dL Total Bilirubin (0.1-1.2) mg/dL Direct Bilirubin (0-0.2) mg/dL Indirect Bilirubin mg/dL AST (5-40) units/L ALT (7-56) units/L Alkaline Phosphatase (35-129) units/L Total Creatine Kinase (55-170) units/L Troponin T (0.00-0.029) ng/mL Total Protein (6.3-8.2) g/dL Albumin (3.9-5) g/dL Albumin/Globulin Ratio % Salicylates 1.0 L (2.8-20.0) mg/dL Acetaminophen < 5.0 L (10.0-30.0) ug/mL - EKG Data -: EKG Interpreted by Ga EKG shows normal: sinus rhythm Rate: normal 07/22/19 18:30 Sinus rhythm, 79 bpm, left axis deviation, left ventricular hypertrophy, QTC prolonged, premature ventricular contraction, nonspecific ST elevation in inferior leads. The EKG is abnormal. It is not consistent with a STEMI. - Radiology Data Radiology results: report reviewed, image reviewed Print Report Referring Physician: TONIO BASS Patient Name: CORTEZ COX Date of : 1970 Sex: Male Report Date: 2019-07-22 Report Status: [place] [address] Cat Scan Report Signed Patient: CORTEZ COX MR#: [id number] : 1970 Acct:[id number] Age/Sex: 49 / M ADM Date: 07/22/19 Loc: ED Attending Dr: Ordering Physician: TONIO BASS MD Date of Service: 07/22/19 Procedure(s): CT cervical spine wo con Accession Number(s): [id number] cc: TONIO BASS MD CT CERVICAL SPINE: 07/22/2019 INDICATION / CLINICAL INFORMATION: sz trauma, cannot clear c spine. COMPARISON: None available. FINDINGS: CT images of the cervical spine were obtained. Images are evaluated in the axial, coronal, and sagittal planes. There is no evidence of acute traumatic injury. Degenerative disc space narrowing and osteophyte formation is present at C5-6 and C6-7 levels. Mild degenerative facet changes present bilaterally. CRANIOCERVICAL JUNCTION: Unrema rkable. PARASPINAL STRUCTURES: No significant abnormality. A few scattered intermediate size lymph nodes are noted bilaterally, without evidence of significant adenopathy. IMPRESSION: No acute abnormality. Degenerative changes. All CT scans at this location are performed using dose reduction to ALARA by means of automated exposure control. Signer Name: Jesús Landa MD Signed: 07/22/2019 5:04 PM Workstation Name: [id number] Transcribed By: AL Dictated By: Jesús Landa MD Electronically Authenticated By: Jesús Landa MD Signed Date/Time: 07/22/19 7532 DD/ 1700 TD/TT: Referring Physician: TONIO BASS Patient Name: CORTEZ COX Date of : 1970 Sex: Male Report Date: 2019-07-22 Report Status: Finalized [facility] [address] [place] [id number] Cat Scan Report Signed Patient: CORTEZ COX MR#: [id number] : 1970 Acct:[id number] Age/Sex: 49 / M ADM Date: 07/22/19 Loc: ED Attending Dr: Ordering Physician: TONIO BASS MD Date of Service: 07/22/19 Procedure(s): CT head/brain wo con Accession Number(s): [id number] cc: TONIO BASS MD CT head/brain wo con INDICATION / CLINICAL INFORMATION: 49 years Male; neuro deficits <6hrs or sx present upon awakening. TECHNIQUE: Routine CT head without contrast. All CT scans at this location are performed using CT dose reduction for ALARA by means of automated exposure control. COMPARISON: None. FINDINGS: BRAIN / INTRACRANIAL CONTENTS: The motion degrades image quality despite repeat imaging. However, there are scattered areas of decreased attenuation including within the left centrum semiovale and right davison radiata most consistent with infarcts at. The findings appear chronic though correlation would be needed given the history of unspecified "neuro deficits". There is a more chronic appearing old small lacunar infarct along the left caudothalamic region. A 1 cm focus of more ill-defined decrease attenuation is seen along the medial left occipital lobe. Is mild cerebral atrophy. The ventricular system is correspondingly appropriate in size and configuration. There is no gross CT evidence of acute intracranial hemorrhage. ORBITS: No significant abnormality of visualized orbits. SINUSES / MASTOIDS: There is a 1.5 cm retention cyst along t he inferior right maxillary sinus. CRANIOCERVICAL JUNCTION: No significant abnormality. ADDITIONAL FINDINGS: None. IMPRESSION: 1. The study is limited by motion. However, there is extensive microvascular angiopathy as detailed above; correlation would be needed in this patient with history of unspecified "neuro deficits". 2. There is no definitive CT evidence of acute intracranial hemorrhage. The study was specified as code stroke and called emergently to Dr. Bass in the ER at 3:59 PM Central standard time. Signer Name: Tonio Hunter MD Signed: 07/22/2019 4:55 PM Workstation Name: [id number] Transcribed By: MR Dictated By: Tonio Hunter MD Electronically Authenticated By: Tonio Hunter MD Signed Date/Time: 07/22/19 1655 Referring Physician: TONIO BASS Patient Name: CORTEZ COX Date of : 1970 Sex: Male Report Date: 2019-07-22 Report Status: Finalized [facility] [address] [place] [address] Cat Scan Report Signed Patient: CORTEZ COX MR#: [id number] : 1970 Acct:[id number] Age/Sex: 49 / M ADM Date: 07/22/19 Loc: ED Attending Dr: Ordering Physician: TONIO BASS MD Date of Service: 07/22/19 Procedure(s): CT angio head Accession Number(s): [id number] cc: TONIO BASS MD CTA head with and without IV contrast. CLINICAL HISTORY: Cerebrovascular accident Technique: Multiple contiguous postcontrast CT images of the head were obtained at 0.63 mm intervals.3 plane MIP reconstructions were obtained. Precontrast localizing images were also performed. CT scans at this location are performed using the CT dose reduction for ALAMobivity by means of automated exposure control. FINDINGS: No previous exams available for comparison. There is notable atherosclerotic calcification involving the intracranial left vertebral arteries with occlusion of the distal segment on the left at. Significant narrowing is seen on the right. Furthermore, there is also occlusion of the proximal basilar artery at. There is some contrast opacification of the basilar tip which appears to be related to collateral flow via the posterior communicating arteries. A very thin focus of contrast is seen extending more inferiorly along the left lateral mid to distal basilar artery at. The posterior cerebral arteries also pacified via the communicating vessels. There is atherosclerotic calcification involving distal internal carotid arteries, most notably the clinoid segments with moderate right and mild left stenosis at. There is no clear evidence of significant narrowing involving the proximal anterior or middle cerebral arteries at. The adjacent branches also opacify with contrast. There is no d efinitive CTA evidence of intracranial aneurysm. The right transverse and sigmoid sinuses opacify with contrast at. There is irregularity with hypoplasia of the left transverse sinus which may be developmental. However, the left sigmoid sinus is not as well visualized and correlation would be needed at regarding venous sinus thrombosis. The superior sagittal sinuses unremarkable. IMPRESSION: There is occlusion of the basilar and distal left vertebral arteries as detailed above. Collateral flow is seen within the basilar tip and posterior cerebral arteries via the communicating of vessels.. There is atherosclerotic calcification involving the distal internal carotid arteries with mild to mode rate narrowing of the clinoid segments as described.. There is nonopacification of the left sigmoid sinus at concerning for thrombosis, also detailed above. Signer Name: Tonio Hunter MD Signed: 07/22/2019 6:25 PM Workstation Name: [id number] Print Report Referring Physician: TONIO BASS Patient Name: CORTEZ COX Date of : 1970 Sex: Male Report Date: 2019-07-22 Report Status: [place] [address] Cat Scan Report Signed Patient: CORTEZ COX MR#: [id number] : 1970 Acct:[id number] Age/Sex: 49 / M ADM Date: 07/22/19 Loc: ED Attending Dr: Ordering Physician: TONIO BASS MD Date of Service: 07/22/19 Procedure(s): CT angio neck Accession Number(s): [id number] cc: TONIO BASS MD NECK CT ANGIOGRAM07/22/2019 HISTORY: Stroke. Seizure. FINDINGS: Contrast-enhanced CT angiographic images of the neck were obtained. In addition to the axial images, sagittal and coronal reformatted images were obtained. In addition, 3 plane MIP reconstructions were produced. NASCET like criteria were used in this evaluation. There is no evidence of acute abnormality. Carotid bifurcations demonstrate no evidence of carotid stenosis. Internal and common carotid arteries are unremarkable. Tortuosity of the upper cervical internal carotid arteries is noted bilaterally. Vertebral artery contours are unremarkable. There is no evidence of abnormality of the aortic arch. Soft tissue structures in the neck are unremarkable. There is prominent consolidation of the right upper lung field and atelectatic changes on the left. IMPRESSION: No evidence of significant vascular abnormality. Right upper lung consolidation. All CT scans at this location are performed using dose reduction to ALARA by means of automated exposure control. Signer Name: Jesús Landa MD Signed: 07/22/2019 6:30 PM Workstation Name: [id number] Transcribed By: AL Dictated By: Jesús Landa MD Electronically Authenticated By: Jesús Landa MD Signed Date/Time: 07/22/191829 DD/ 09 - Core Measures Measure Exclusions: not indicated - Thrombolytic Inclusion/Exclusion Thrombolytic Exclusion Criteria: Symptom Onset > 3 Hours Critical Care Time: Yes Critical care time in (mins) excluding proc time.: 120 Critical care attestation.: If time is entered above; I have spent that time in minutes in the direct care of this critically ill patient, excluding procedure time. ED Disposition Clinical Impression: Acute respiratory failure, Stroke, Basilar artery thrombosis Disposition: [facility] Is pt being admited?: No Does the pt Need Aspirin: No Condition: Critical Referrals: PRIMARY CAREMD [Primary Care Provider] - 3-5 Days Forms: Accompanied Note
[2019-07-22] MEDS ORDERED: SODIUM CHLORIDE 0.9% 1000 ML 2,000 ML ONE (16:36)
[2019-07-22] MEDS ORDERED: ETOMIDATE 20 MG/10 ML INJ IV ONE ×2 (16:40→16:41)
[2019-07-22] MEDS ORDERED: ROCURONIUM 50 MG/5 ML INJ IV ONE ×2 (16:40→16:41)
[2019-07-22] MEDS ORDERED: LIDOCAINE PF 100 MG/5 ML (CARDIAC SYRINGE) IV ONE (16:40)
[2019-07-22] MEDS ORDERED: LIP THERAPY VASELINE TP PRN (16:46)
[2019-07-22] MEDS ORDERED: MINERAL OIL/PETROLATUM, WHITE OPHTH OINT 3.5 GM OU PRN (16:46)
[2019-07-22] MEDS ORDERED: levETIRAcetam 1000 MG/NS 0.75% 1,000 MG/100 ML BAG IV ONE (16:47)
--- NOTE | 2019-07-22 16:59 | Cat Scan Report ---
CT head/brain wo con INDICATION / CLINICAL INFORMATION: 49 years Male; neuro deficits <6hrs or sx present upon awakening. TECHNIQUE: Routine CT head without contrast. All CT scans at this location are performed using CT dos e reduction for ALARA by means of automated exposure control. COMPARISON: None. FINDINGS: BRAIN / INTRACRANIAL CONTENTS: The motion degrades image quality despite repeat imaging. However, the re are scattered areas of decreased attenuation including within the left centrum semiovale and right davison radiata most consistent with infarcts at. The findings appear chronic though correlation woul d be needed given the history of unspecified "neuro deficits". There is a more chronic appearing old small lacunar infarct along the left caudothalamic region. A 1 cm focus of more ill-defined decrease attenuation is seen along the medial left occipital lobe. Is mild cerebral atrophy. The ventricular system is correspondingly appropriate in size and configura tion. There is no gross CT evidence of acute intracranial hemorrhage. ORBITS: No significant abnormality of visualized orbits. SINUSES / MASTOIDS: There is a 1.5 cm retention cyst along the inferior right maxillary sinus. CRANIOCERVICAL JUNCTION: No significant abnormality. ADDITIONAL FINDINGS: None. IMPRESSION: 1. The study is limited by motion. However, there is extensive microvascular angiopathy as detailed a abiodun; correlation would be needed in this patient with history of unspecified "neuro deficits". 2. There is no definitive CT evidence of acute intracranial hemorrhage. The study was specified as code stroke and called emergently to Dr. Bass in the ER at 3:59 PM Natasha tra standard time. Signer Name: Tonio Hunter MD Signed: 07/22/2019 4:55 PM Workstation Name: [id number]
[2019-07-22] MEDS ORDERED: niCARdipine 50 MG in SODIUM CHLORIDE 0.9% 250ML 230 ML IV SCH ×2 (17:00→18:00)
[2019-07-22] MEDS ORDERED: fentaNYL DRIP Premix 2,000 MCG/100 ML BAG IV SCH (17:00)
--- NOTE | 2019-07-22 17:08 | Cat Scan Report ---
CT CERVICAL SPINE: 07/22/2019 INDICATION / CLINICAL INFORMATION: sz trauma, cannot clear c spine. COMPARISON: None available. FINDINGS: CT images of the cervical spine were obtained. Images are evaluated in the axial, coronal, and sagitt al planes. There is no evidence of acute traumatic injury. Degenerative disc space narrowing and osteophyte formation is present at C5-6 and C6-7 levels. Mild d egenerative facet changes present bilaterally. CRANIOCERVICAL JUNCTION: Unremarkable. PARASPINAL STRUCTURES: No significant abnormality. A few scattered intermediate size lymph nodes are noted bilaterally, without evidence of significant adenopathy. IMPRESSION: No acute abnormality. Degenerative changes. All CT scans at this location are performed using dose reduction to ALARA by means of automated expos ure control. Signer Name: Jesús Landa MD Signed: 07/22/2019 5:04 PM Workstation Name: [id number]
[2019-07-22 17:12] LABS: Basophils # (Auto) 0.1 K/mm3 (0.0-0.1); Basophils % (Auto) 0.5 % (0.0-1.8); Eosinophils % (Auto) 0.2 % (0.0-4.3); Hematocrit 51.9 % (35.5-45.6); Hemoglobin 16.9 gm/dl (11.8-15.2); Lymphocytes # (Auto) 2.3 K/mm3 (1.2-5.4); Lymphocytes % (Auto) 12.8 % (13.4-35.0); Mean Corpuscular HGB Conc 33 % (32-34); Mean Corpuscular Volume 92 fl (84-94); Monocytes # (Auto) 0.6 K/mm3 (0.0-0.8); Monocytes % (Auto) 3.1 % (0.0-7.3); Platelet Count 275 K/mm3 (140-440); Red Blood Count 5.62 M/mm3 (3.65-5.03); Red Cell Distribution Width 13.6 % (13.2-15.2)
[2019-07-22 17:23] LABS: INR 1.16 (0.87-1.13)
[2019-07-22 17:24] LABS: Partial Thromboplastin Time 31.5 Sec. (24.2-36.6)
[2019-07-22] MEDS ORDERED: PIPERACIL/TAZOBACTA 4.5/NS 100 4.5 GM/100 ML VIAL IV ONE (17:28)
[2019-07-22] MEDS ORDERED: SODIUM CHLORIDE 0.9% 250ML 250 ML IV ONE (17:28)
--- NOTE | 2019-07-22 17:37 | XRay Report ---
ABDOMEN 1 VIEW INDICATION / CLINICAL INFORMATION: OG tube. COMPARISON: None available. FINDINGS: TUBES / LINES: Enteric tube in place looping in the stomach, and with tip terminating in the region o f the first portion of the duodenum. BOWEL GAS PATTERN: No significant abnormality. FREE AIR / EXTRALUMINAL GAS: None seen. ADDITIONAL FINDINGS: No significant additional findings. IMPRESSION: 1. Enteric tube with tip terminating in the region of the first portion of the duodenum. Signer Name: Bela Serrano MD Signed: 07/22/2019 5:32 PM Workstation Name: [id number]
[2019-07-22] MEDS: fentaNYL 100 MCG/2 ML INJ IV PRN ×2 (17:38→17:43)
[2019-07-22 17:40] LABS: BUN/Creatinine Ratio 14; Blood Urea Nitrogen 15 mg/dL (9-20); Calcium 9.6 mg/dL (8.4-10.2); Hemolysis Index 37
--- NOTE | 2019-07-22 17:40 | XRay Report ---
CHEST 1 VIEW 07/22/2019 4:31 PM INDICATION / CLINICAL INFORMATION: HTN. COMPARISON: One view of the chest from 12/05/2018. FINDINGS: SUPPORT DEVICES: An ET tube terminates 2.5 cm above the camilo. The most distal visualized portion of an esophagogastric tube projects over the gastric body. HEART / MEDIASTINUM: There is been interval sternotomy. The cardiac silhouette is prominent with cent ral vascular congestion. LUNGS / PLEURA: Bilateral pulmonary opacities may represent atelectasis/edema. No significant pleural effusion. No pneumothorax. ADDITIONAL FINDINGS: No significant additional findings. IMPRESSION: 1. Bilateral pulmonary opacities may represent atelectasis/edema. 2. Prominent cardiac silhouette with central vascular congestion. Signer Name: Chuck Gallagher MD Signed: 07/22/2019 5:36 PM Workstation Name: [id number]
[2019-07-22 17:42] LABS: Alanine Aminotransferase 19 units/L (7-56); Albumin 4.7 g/dL (3.9-5)
[2019-07-22 17:44] LABS: Bilirubin,Direct < 0.2 mg/dL (0-0.2)
--- NOTE | 2019-07-22 18:15 | Emergency Department Report ---
ED Neuro Deficit HPI - General Chief Complaint: Altered Mental Status Stated Complaint: VOMITING Time Seen by Provider: 07/22/19 16:01 Source: patient, EMS (Verbal report received from EMS. EMS documentation not available at time of chart dictation ), RN notes reviewed, old records reviewed Mode of arrival: Stretcher Limitations: Altered Mental Status, Physical Limitation - History of Present Illness -: Gradual Location: left face, left arm, left leg, altered Place: work Severity: Unable to Determine Quality: other Improves With: other Worsens With: other - Related Data Home Medications: Home Medications Medication Instructions Recorded Confirmed Last Taken Aspirin EC [Ecotrin] 325 mg PO QDAY 12/13/18 12/13/18 Unknown Metoprolol [Lopressor] 25 mg PO BID 12/13/18 12/13/18 Unknown Nitroglycerin [Nitrostat] 0.4 mg SL Q5M PRN 12/13/18 12/13/18 Unknown lisinopriL [Zestril] 20 mg PO QDAY 12/13/18 12/13/18 Unknown Allergies/Adverse Reactions: Allergies Allergy/AdvReac Type Severity Reaction Status Date / Time No Known Allergies Allergy Unverified 12/13/18 20:04 ED Review of Systems ROS: Stated complaint: VOMITING Other details as noted in HPI ED Past Medical Hx - Past Medical History Previous Medical History?: Yes Hx Hypertension: Yes Hx Heart Attack/AMI: Yes - Surgical History Past Surgical History?: Yes Additional Surgical History: bypass 12/2018 - Social History Smoking Status: Former Smoker Substance Use Type: Alcohol, Marijuana - Medications Home Medications: Home Medications Medication Instructions Recorded Confirmed Last Taken Type Aspirin EC [Ecotrin] 325 mg PO QDAY 12/13/18 12/13/18 Unknown History Metoprolol [Lopressor] 25 mg PO BID 12/13/18 12/13/18 Unknown History Nitroglycerin [Nitrostat] 0.4 mg SL Q5M PRN 12/13/18 12/13/18 Unknown History lisinopriL [Zestril] 20 mg PO QDAY 12/13/18 12/13/18 Unknown History ED Neuro Physical Exam - General Limitations: Altered Mental Status, Physical Limitation General appearance: alert, anxious, in distress, obese Suspected Stroke: Yes - NIHSS Assessment Interval: Baseline 1a. Level of Consciousness: coma/unresponsive 1b. LOC Questions: dysarthric/intubated 1c. LOC Commands: performs no tasks correctly 2. Best Gaze: normal 3. Visual: no visual loss 4. Facial Palsy: normal symmetrical movement 5b. Motor Arm Right: no movement 5a. Motor Arm Left: no movement 6a. Motor Leg Left: no movement 6b. Motor Leg Right: no movement 7. Limb Ataxia: absent 8. Sensory: normal 9. Best Language: coma/unresponsive 10. Dysarthria: intubated or other barrier 11. Extinction/Inattention: no abnormality Total Score: 25 Stroke Severity: Severe Stroke ED Course Vital Signs 07/22/19 07/22/19 07/22/19 15:59 16:36 16:46 Temperature 97 F L Pulse Rate 83 69 114 H Respiratory 29 H 23 19 Rate Blood Pressure 144/87 218/137 O2 Sat by Pulse 99 88 98 Oximetry 07/22/19 07/22/19 07/22/19 17:00 17:38 18:04 Temperature Pulse Rate 104 H 88 82 Respiratory 19 18 Rate Blood Pressure 226/149 151/80 227/143 O2 Sat by Pulse 91 94 95 Oximetry 07/22/19 18:05 Temperature Pulse Rate 78 Respiratory 18 Rate Blood Pressure 227/143 O2 Sat by Pulse 95 Oximetry - Lab Data Result diagrams: 07/22/19 17:02 07/22/19 17:02 Lab Results 07/22/19 07/22/19 07/22/19 Range/Units 16:08 17:02 17:02 WBC 17.6 H (4.5-11.0) K/mm3 RBC 5.62 H (3.65-5.03) M/mm3 Hgb 16.9 H (11.8-15.2) gm/dl Hct 51.9 H (35.5-45.6) % MCV 92 (84-94) fl MCH 30 (28-32) pg MCHC 33 (32-34) % RDW 13.6 (13.2-15.2) % Plt Count 275 (140-440) K/mm3 Lymph % (Auto) 12.8 L (13.4-35.0) % Bosque % (Auto) 3.1 (0.0-7.3) % Eos % (Auto) 0.2 (0.0-4.3) % Baso % (Auto) 0.5 (0.0-1.8) % Lymph # 2.3 (1.2-5.4) K/mm3 Bosque # 0.6 (0.0-0.8) K/mm3 Eos # 0.0 (0.0-0.4) K/mm3 Baso # 0.1 (0.0-0.1) K/mm3 Seg Neutrophils % 83.4 H (40.0-70.0) % Seg Neutrophils # 14.7 H (1.8-7.7) K/mm3 PT 15.0 H (12.2-14.9) Sec. INR 1.16 H (0.87-1.13) APTT 31.5 (24.2-36.6) Sec. Thrombin Time (15.1-19.6) Sec. Sodium (137-145) mmol/L Potassium (3.6-5.0) mmol/L Chloride (98-107) mmol/L Carbon Dioxide (22-30) mmol/L Anion Gap mmol/L BUN (9-20) mg/dL Creatinine (0.8-1.5) mg/dL Estimated GFR ml/min BUN/Creatinine Ratio % Glucose (75-100) mg/dL POC Glucose 202 H (70-105) Calcium (8.4-10.2) mg/dL Magnesium (1.7-2.3) mg/dL Total Bilirubin (0.1-1.2) mg/dL Direct Bilirubin (0-0.2) mg/dL Indirect Bilirubin mg/dL AST (5-40) units/L ALT (7-56) units/L Alkaline Phosphatase (35-129) units/L Total Creatine Kinase (55-170) units/L Troponin T (0.00-0.029) ng/mL Total Protein (6.3-8.2) g/dL Albumin (3.9-5) g/dL Albumin/Globulin Ratio % Salicylates (2.8-20.0) mg/dL Acetaminophen (10.0-30.0) ug/mL 07/22/19 07/22/19 07/22/19 Range/Units 17:02 17:02 17:02 WBC (4.5-11.0) K/mm3 RBC (3.65-5.03) M/mm3 Hgb (11.8-15.2) gm/dl Hct (35.5-45.6) % MCV (84-94) fl MCH (28-32) pg MCHC (32-34) % RDW (13.2-15.2) % Plt Count (140-440) K/mm3 Lymph % (Auto) (13.4-35.0) % Bosque % (Auto) (0.0-7.3) % Eos % (Auto) (0.0-4.3) % Baso % (Auto) (0.0-1.8) % Lymph # (1.2-5.4) K/mm3 Bosque # (0.0-0.8) K/mm3 Eos # (0.0-0.4) K/mm3 Baso # (0.0-0.1) K/mm3 Seg Neutrophils % (40.0-70.0) % Seg Neutrophils # (1.8-7.7) K/mm3 PT (12.2-14.9) Sec. INR (0.87-1.13) APTT (24.2-36.6) Sec. Thrombin Time 17.6 (15.1-19.6) Sec. Sodium 137 (137-145) mmol/L Potassium 3.2 L (3.6-5.0) mmol/L Chloride 96.2 L (98-107) mmol/L Carbon Dioxide 18 L (22-30) mmol/L Anion Gap 26 mmol/L BUN 15 (9-20) mg/dL Creatinine 1.1 (0.8-1.5) mg/dL Estimated GFR > 60 ml/min BUN/Creatinine Ratio 14 % Glucose 243 H (75-100) mg/dL POC Glucose (70-105) Calcium 9.6 (8.4-10.2) mg/dL Magnesium 2.00 (1.7-2.3) mg/dL Total Bilirubin 0.40 (0.1-1.2) mg/dL Direct Bilirubin < 0.2 (0-0.2) mg/dL Indirect Bilirubin 0.2 mg/dL AST 25 (5-40) units/L ALT 19 (7-56) units/L Alkaline Phosphatase 102 (35-129) units/L Total Creatine Kinase 161 (55-170) units/L Troponin T < 0.010 (0.00-0.029) ng/mL Total Protein 8.1 (6.3-8.2) g/dL Albumin 4.7 (3.9-5) g/dL Albumin/Globulin Ratio 1.4 % Salicylates (2.8-20.0) mg/dL Acetaminophen (10.0-30.0) ug/mL 07/22/19 07/22/19 Range/Units 17:02 17:02 WBC (4.5-11.0) K/mm3 RBC (3.65-5.03) M/mm3 Hgb (11.8-15.2) gm/dl Hct (35.5-45.6) % MCV (84-94) fl MCH (28-32) pg MCHC (32-34) % RDW (13.2-15.2) % Plt Count (140-440) K/mm3 Lymph % (Auto) (13.4-35.0) % Bosque % (Auto) (0.0-7.3) % Eos % (Auto) (0.0-4.3) % Baso % (Auto) (0.0-1.8) % Lymph # (1.2-5.4) K/mm3 Bosque # (0.0-0.8) K/mm3 Eos # (0.0-0.4) K/mm3 Baso # (0.0-0.1) K/mm3 Seg Neutrophils % (40.0-70.0) % Seg Neutrophils # (1.8-7.7) K/mm3 PT (12.2-14.9) Sec. INR (0.87-1.13) APTT (24.2-36.6) Sec. Thrombin Time (15.1-19.6) Sec. Sodium (137-145) mmol/L Potassium (3.6-5.0) mmol/L Chloride (98-107) mmol/L Carbon Dioxide (22-30) mmol/L Anion Gap mmol/L BUN (9-20) mg/dL Creatinine (0.8-1.5) mg/dL Estimated GFR ml/min BUN/Creatinine Ratio % Glucose (75-100) mg/dL POC Glucose (70-105) Calcium (8.4-10.2) mg/dL Magnesium (1.7-2.3) mg/dL Total Bilirubin (0.1-1.2) mg/dL Direct Bilirubin (0-0.2) mg/dL Indirect Bilirubin mg/dL AST (5-40) units/L ALT (7-56) units/L Alkaline Phosphatase (35-129) units/L Total Creatine Kinase (55-170) units/L Troponin T (0.00-0.029) ng/mL Total Protein (6.3-8.2) g/dL Albumin (3.9-5) g/dL Albumin/Globulin Ratio % Salicylates 1.0 L (2.8-20.0) mg/dL Acetaminophen < 5.0 L (10.0-30.0) ug/mL Critical care attestation.: If time is entered above; I have spent that time in minutes in the direct care of this critically ill patient, excluding procedure time. ED Disposition Clinical Impression: Stroke Disposition: OP ADMIT IP TO THIS HOSP Is pt being admited?: Yes Condition: Stable Referrals: PRIMARY CARE,MD [Primary Care Provider] - 3-5 Days Forms: Accompanied Note Assessment and Plan [facility] Date of Service: 07/22/2019 16:12:59 Impression: Suspect acute ischemic stroke. Unclear if anterior (R) or posterior circulation. N/V and decompensating mental status worrisome for posterior circulation. R/o basilar artery occlusion. Comments/Sign-Out: -No role for thrombolytic given time LKW > 4.5 hours. -Once airway stable recommend STAT CTA head/neck to r/o LVO, especially basilar. Metrics: Last Known Well: 07/22/2019 11:00:00 [employer] Notification Time: 07/22/2019 16:12:24 Arrival Time: 07/22/2019 16:01:00 Stamp Time: 07/22/2019 16:12:59 Time First Login Attempt: 07/22/2019 16:17:00 Video Start Time: 07/22/2019 16:30:00 Symptoms: AMS, L sided weakness NIHSS Start Assessment Time: 07/22/2019 16:35:00 Patient is not a candidate for tPA. Patient was not deemed candidate for tPA thrombolytics because of Last Well Known Above 4.5 Hours. Video End Time: 07/22/2019 16:43:00 CT head showed no acute hemorrhage or acute core infarct. Clinical Presentation is Suggestive of Large Vessel Occlusive Disease, Recommendations are as Follows ED Physician notified of diagnostic impression and management plan on 07/22/2019 16:49:12 Our recommendations are outlined below. Recommendations: -No tPA. Give ASA suppository. -STAT CTA to r/o LVO amenable to thrombectomy. -Labs to r/o toxic, metabolic, infectious disturbances. Sign Out: Discussed with Emergency Department Provider History of Present Illness: Patient is a 49 year old Male. Patient was brought by EMS for symptoms of AMS, L sided weakness. LKW 11:00. Presented with L sided weakness. In ED developed N/V, became progressively obtunded. Required intubation for airway protection. My exam is after rapid sequence intubation (paralytic, CT head showed no acute hemorrhage or acute core infarct; extensive chronic small vessel ischemic changes. CT C-spine negative for fracture. CTA pending. Examination: BP(144/87), Pulse(83), Blood Glucose(202) NIHSS cannot be completed due to patient status. S/p rapid sequence intubation (received paralytic). Patient was informed the Neurology Consult would happen via TeleHealth consult by way of interactive audio and video telecommunications and consented to receiving care in this manner. Due to the immediate potential for life-threatening deterioration due to underlying acute neurologic illness, I spent 35 minutes providing critical care. This time includes time for face to face visit via telemedicine, review of medical records, imaging studies and discussion of findings with providers, the patient and/or family. Dr Tonio Queen [facility] Case [id number]
--- NOTE | 2019-07-22 18:29 | Cat Scan Report ---
CTA head with and without IV contrast. CLINICAL HISTORY: Cerebrovascular accident Technique: Multiple contiguous postcontrast CT images of the head were obtained at 0.63 mm intervals. 3 plane MIP reconstructions were obtained. Precontrast localizing images were also performed. CT scan s at this location are performed using the CT dose reduction for ALARA by means of automated exposure control. FINDINGS: No previous exams available for comparison. There is notable atherosclerotic calcification involving the intracranial left vertebral arteries with occlusion of the distal segment on the left a t. Significant narrowing is seen on the right. Furthermore, there is also occlusion of the proximal b asilar artery at. There is some contrast opacification of the basilar tip which appears to be related to collateral flow via the posterior communicating arteries. A very thin focus of contrast is seen e xtending more inferiorly along the left lateral mid to distal basilar artery at. The posterior cerebr al arteries also pacified via the communicating vessels. There is atherosclerotic calcification involving distal internal carotid arteries, most notably the c linoid segments with moderate right and mild left stenosis at. There is no clear evidence of signific ant narrowing involving the proximal anterior or middle cerebral arteries at. The adjacent branches a lso opacify with contrast. There is no definitive CTA evidence of intracranial aneurysm. The right transverse and sigmoid sinuse s opacify with contrast at. There is irregularity with hypoplasia of the left transverse sinus which may be developmental. However, the left sigmoid sinus is not as well visualized and correlation would be needed at regarding venous sinus thrombosis. The superior sagittal sinuses unremarkable. IMPRESSION: There is occlusion of the basilar and distal left vertebral arteries as detailed above. Collateral fl ow is seen within the basilar tip and posterior cerebral arteries via the communicating of vessels.. There is atherosclerotic calcification involving the distal internal carotid arteries with mild to mo derate narrowing of the clinoid segments as described.. There is nonopacification of the left sigmoid sinus at concerning for thrombosis, also detailed above . Signer Name: Tonio Hunter MD Signed: 07/22/2019 6:25 PM Workstation Name: [id number]
--- NOTE | 2019-07-22 18:34 | Cat Scan Report ---
NECK CT ANGIOGRAM07/22/2019 HISTORY: Stroke. Seizure. FINDINGS: Contrast-enhanced CT angiographic images of the neck were obtained. In addition to the axia l images, sagittal and coronal reformatted images were obtained. In addition, 3 plane MIP reconstruct ions were produced. NASCET like criteria were used in this evaluation. There is no evidence of acute abnormality. Carotid bifurcations demonstrate no evidence of carotid stenosis. Internal and common carotid arterie s are unremarkable. Tortuosity of the upper cervical internal carotid arteries is noted bilaterally. Vertebral artery contours are unremarkable. There is no evidence of abnormality of the aortic arch. Soft tissue structures in the neck are unremarkable. There is prominent consolidation of the right upper lung field and atelectatic changes on the left. IMPRESSION: No evidence of significant vascular abnormality. Right upper lung consolidation. All CT scans at this location are performed using dose reduction to ALARA by means of automated expos ure control. Signer Name: Jesús Landa MD Signed: 07/22/2019 6:30 PM Workstation Name: [id number]
[2019-07-22] MEDS ORDERED: POTASSIUM CHLORIDE 10 MEQ 10 MEQ/100 ML BAG IV SCH (19:00)
[2019-07-22 19:17] VITALS: BP 136/76
== END 2019-07-22 19:30 | disposition short-term general hospital (02) ==
LOC: ED 15:51
DX: J96.00 Acute respiratory failure, unspecified whether with hypoxia or hypercapnia (principal); I63.9 Cerebral infarction, unspecified; G81.94 Hemiplegia, unspecified affecting left nondominant side; I11.0 Hypertensive heart disease with heart failure; I25.2 Old myocardial infarction; F12.10 Cannabis abuse, uncomplicated; Z98.890 Other specified postprocedural states; Z87.891 Personal history of nicotine dependence; Z79.899 Other long term (current) drug therapy
CPT/HCPCS: 31500; 36415; 70450; 70496; 70498; 71045; 72125; 74018; 80048; 80076; 82140; 82550; 82962; 83735; 84484; 85025; 85610; 85670; 85730; 87040; 93005; 93010; 96365; 96366; 96368; 96375; 96376; 99291; 99292; J1953; J2001; J2543; J3010; J7030; J7050; Q9967; 51702; 80320; 94002; 96367; G0480